=== PATIENT | female | born 2000 | race Caucasian/White ===

== ENCOUNTER 2020-03-24 01:34 | Emergency (ER) | payer MEDICAID ==
[~2020-03-24] VITALS: Ht 165.1 cm; Wt 84.8 kg
[2020-03-24 01:43] VITALS: Ht 165.1 cm; Wt 84.8 kg
[2020-03-24 02:21] LABS: BASOPHIL % 0.4 % (0-2); PLATELET COUNT 205 x10^3mcL (130-400); RED CELL DISTRIBUTION WIDTH 13.7 % (11.5-14.5)
[2020-03-24 03:07] LABS: CALCIUM 8.6 mg/dL (8.5-10.1); CARBON DIOXIDE 25.1 mmol/L (21-32); CHLORIDE SERUM 106 mmol/L (98-107); CREATININE SERUM 0.6 mg/dL (0.6-1.0); GFR1 > 60 mL/min; GLUCOSE SERUM 93 mg/dL (74-106); POTASSIUM SERUM 3.5 mmol/L (3.5-5.1); SODIUM SERUM 140 mmol/L (136-145)
[2020-03-24 03:09] VITALS: BP 110/67
== END 2020-03-24 03:09 | disposition short-term general hospital (02) ==
LOC: ED 01:34
PROVIDERS: Emergency Medicine
DX: O20.8 Other hemorrhage in early pregnancy (principal); Z3A.36 36 weeks gestation of pregnancy; Z88.0 Allergy status to penicillin